=== PATIENT | male | born 1955 | race Caucasian/White ===

== ENCOUNTER 2017-02-03 14:39 | Emergency (ER) | payer OTHER ==
[~2017-02-03] VITALS: Ht 175.3 cm; Wt 71.7 kg
[2017-02-03] MEDS ORDERED: GABA-282 PO (14:57)
[2017-02-03] MEDS ORDERED: NALOXONE INJ 2 MG/2 ML SYRINGE (J2310) IV STA ×2 (15:33→16:05)
[2017-02-03] MEDS ORDERED: NALOXONE INJ 2 MG/2 ML SYRINGE (J2310) As Ordered ONE (15:34)
[2017-02-03] MEDS ORDERED: NALOXONE INJ 2 MG/2 ML SYRINGE (J2310) ONE (15:45)
[2017-02-03] MEDS ORDERED: NALOXONE INJ 2 MG/2 ML SYRINGE (J2310) IM STA (16:05)
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
[2017-02-03 17:21] VITALS: O2SAT 97
[2017-02-03 17:55] VITALS: BP 132/84
== END 2017-02-03 18:08 | disposition home or self-care (01) ==
LOC: M ED 16:53
DX: F11.10 Opioid abuse, uncomplicated (principal); V47.5XXA Car driver injured in collision with fixed or stationary object in traffic accident, initial encounter; Y92.410 Unspecified street and highway as the place of occurrence of the external cause; Y93.89 Activity, other specified; Y99.8 Other external cause status; F17.200 Nicotine dependence, unspecified, uncomplicated
CPT/HCPCS: 72125; 96372; 96374; 96376; 99284; J2310